=== PATIENT | female | born 1960 | race Two or more races ===

== ENCOUNTER 2023-09-11 08:27 | Emergency (ER) | payer OTHER ==
[~2023-09-11] VITALS: Ht 149.9 cm; Wt 53.5 kg
[2023-09-11 09:29] VITALS: BP 153/57; PULSE 59; RESP 18; TEMP 98; O2SAT 98
[2023-09-11] MEDS ORDERED: IBUP1TAB5 PO (10:04)
[2023-09-11] MEDS ORDERED: METH-1182 PO (10:04)
[2023-09-11] MEDS: KETOROLAC TROMETH 30 MG/ML 1ML VIAL IM ONE (10:17)
== END 2023-09-11 10:49 | disposition home or self-care (01) ==
LOC: ER 08:27
DX: M54.2 Cervicalgia (principal); M54.50 Low back pain, unspecified; M25.512 Pain in left shoulder; M25.511 Pain in right shoulder; Z79.1 Long term (current) use of non-steroidal anti-inflammatories (NSAID); Z79.899 Other long term (current) drug therapy; Z88.0 Allergy status to penicillin; V49.9XXA Car occupant (driver) (passenger) injured in unspecified traffic accident, initial encounter; Y93.89 Activity, other specified; Y92.410 Unspecified street and highway as the place of occurrence of the external cause; Y99.8 Other external cause status
CPT/HCPCS: 96372; 99283; J1885